=== PATIENT | female | born 1985 | race Caucasian/White ===

== ENCOUNTER 2018-04-28 22:09 | Emergency (ER) | payer OTHER ==
[~2018-04-28] VITALS: Ht 152.4 cm; Wt 52.7 kg
[2018-04-28] MEDS ORDERED: NORG1TAB12 PO (22:17)
[2018-04-28] MEDS ORDERED: LEVO25TA9 PO (22:17)
[2018-04-28] MEDS ORDERED: PB/HYOSCY/ATR/SCOP/LIDO/MAALOX 55 ML BOTTLE ONE (23:21)
[2018-04-29 00:27] LABS: INFLUENZA TYPE A NEGATIVE FOR TYPE A (NEGATIVE); INFLUENZA TYPE B NEGATIVE FOR TYPE B (NEGATIVE)
[2018-04-29] MEDS ORDERED: PROMETHAZINE HCL/CODEINE 6.25-10MG/5ML SYRUP UDCUP PO ONE (02:15)
[2018-04-29] MEDS ORDERED: ONDANSETRON HCL 4 MG TABLET PO ONE (02:15)
[2018-04-29 02:20] VITALS: BP 115/84
== END 2018-04-29 02:24 | disposition home or self-care (01) ==
LOC: EMS 22:10
DX: H92.03 Otalgia, bilateral (principal); B34.9 Viral infection, unspecified; J45.909 Unspecified asthma, uncomplicated; E03.9 Hypothyroidism, unspecified; Z90.49 Acquired absence of other specified parts of digestive tract; Z90.89 Acquired absence of other organs; Z88.0 Allergy status to penicillin; Z88.1 Allergy status to other antibiotic agents; Z79.899 Other long term (current) drug therapy
CPT/HCPCS: 87804; 99284; Q0162